=== PATIENT | male | born 1990 | race Caucasian/White ===

== ENCOUNTER 2019-05-16 18:12 | Inpatient (IN) | payer MEDICAID ==
[~2019-05-16] VITALS: Ht 170.2 cm; Wt 49.4 kg
--- NOTE | 2019-05-16 18:12 | NUR ---
Patient BIBA BLS, transferred to bed 7. RN evaluating patient at bedside.
[2019-05-16 18:21] VITALS: BP 72/26
[2019-05-16] MEDS ORDERED: NACL 0.9% 2,000 ML IV ONE (18:29)
[2019-05-16] MEDS ORDERED: LEVOFLOXACIN 500 MG/D5W PREMIX 100 ML IV ONE (18:30)
--- NOTE | 2019-05-16 18:31 | NUR ---
29YO HOMELESS MALE BIBA FROM [facility] C/O ABDOMINAL PAIN AND BODY CHILLS. STATES 8/10 SHARP, DIFFUSED ABDOMINAL PAIN. PT IS A KNOWN CASE OF PANCREATITIS, ADMITS TO ALCOHOL INTAKE HOURS AGO. -FEVER, -COUGH, -COLDS. LBM: TODAY. PATIENT POSITIONED FOR COMFORT; HOB ELEVATED; BEDRAILS UP X2; BED DOWN. ER MD SAW PATIENT. PMH: DM, PANCREATITIS MEDS: METFORMIN, ZOFRAN ALLERGIES: NONE
--- NOTE | 2019-05-16 18:50 | NUR ---
office technology professor at bedside.
--- NOTE | 2019-05-16 18:54 | NUR ---
EKG completed at bedside by EMT.
[2019-05-16 19:00] LABS: BASOPHILS % (AUTO) 0.6 % (0.0-2.0); EOSINOPHILS # (AUTO) 0.3 K/uL (0-0.4); EOSINOPHILS % (AUTO) 3.2 % (0.0-4.0); HEMATOCRIT 29.3 % (36-52); HEMOGLOBIN 9.8 g/dL (12.0-18.0); LYMPHOCYTES # (AUTO) 2.1 K/uL (2.0-11.5); LYMPHOCYTES % (AUTO) 25.4 % (20.5-51.1); MEAN CORPUSCULAR HEMOGLOBIN 33 pg (27-31); MEAN CORPUSCULAR HGB CONC 33 g/dL (33-37); MONOCYTES # (AUTO) 0.9 K/uL (0.8-1.0); MONOCYTES % (AUTO) 10.5 % (1.7-9.3); NEUTROPHILS # (AUTO) 4.9 K/uL (1.8-7.7); NEUTROPHILS % (AUTO) 60.3 % (42.2-75.2); PLATELET COUNT (AUTO) 192 K/uL (140-450); RED BLOOD CELL COUNT(AUTO) 2.96 MIL/uL (4.20-6.10); RED CELL DISTRIBUTION WIDTH 13.9 % (11.6-13.7); WHITE BLOOD COUNT (AUTO) 8.1 K/uL (4.8-10.8)
--- NOTE | 2019-05-16 19:11 | NUR ---
RECEIEVED REPORT FROM IRAIS DIOP. WILL CONT CARE AT THIS TIME.
[2019-05-16 19:19] LABS: ACETONE, SERUM NEGATIVE (NEGATIVE)
[2019-05-16 19:22] LABS: ALBUMIN 3.6 g/dL (3.4-5.0); ANION GAP 18.5 (8-16); ASPARTATE AMINOTRANSFERASE 56 U/L (15-37); CARBON DIOXIDE 20.5 mmol/L (21-32); CHLORIDE 100 mmol/L (98-107); GFR ARICAN-AMERICAN 112 mL/min (>90); GLUCOSE 183 mg/dL (74-106); SODIUM SERUM 136 mmol/L (136-145); TOTAL BILIRUBIN 0.3 mg/dL (0.0-1.0); UREA NITROGEN, BLOOD 21 mg/dL (7-18)
[2019-05-16] MEDS ORDERED: KCL 20 MEQ/WATER INJ PREMIX 100 ML IV ONE (19:45)
[2019-05-16 19:50] LABS: APPEARANCE,URINE CLOUDY (CLEAR); BILIRUBIN,URINE NEGATIVE (NEGATIVE); BLOOD, URINE TRACE-L (NEGATIVE); COLOR,URINE YELLOW (YELLOW); LEUKOCYTE ESTERASE ,URINE NEGATIVE (NEGATIVE); NITRITE, URINE NEGATIVE (NEGATIVE); UGLUCOSE NEGATIVE (NEGATIVE)
[2019-05-16 20:00] LABS: WBC,URINE 0-5 /HPF (0-5)
[2019-05-16] MEDS ORDERED: MORPHINE SULFATE 4 MG/ML SYR IVP ONE (20:10)
[2019-05-16] MEDS ORDERED: NACL 0.9% 1,000 ML IV SCH (20:13)
[2019-05-16] MEDS ORDERED: DOCUSATE SODIUM 100 MG GELCAP PO PRN (20:15)
[2019-05-16] MEDS ORDERED: ONDANSETRON 4 MG/2 ML VIAL IM/IVP PRN (20:15)
[2019-05-16] MEDS ORDERED: ACETAMINOPHEN 325 MG TAB PO PRN (20:15)
[2019-05-16 20:17] LABS: PROTHROMBIN TIME 12.9 secs (10.8-13.4)
[2019-05-16] MEDS ORDERED: DEXTROSE 50% 50 ML SYR IVP PRN (20:25)
[2019-05-16 20:45] VITALS: BP 107/70
[2019-05-16 20:45] LABS: MAGNESIUM 1.1 mg/dL (1.8-2.4); PHOSPHORUS 4.3 mg/dL (2.5-4.9); THYROID STIMULATING HORMONE 1.3 uIU/mL (0.34-3.74)
--- NOTE | 2019-05-16 20:45 | NUR ---
ADMITTED A 29 YEAR OLD MALE FROM ER. ALERT AND ORIENTED X 4. NO APPARENT DISTRESS NOTED. HOMELESS. WITH IV ON LEFT AC 20G AND RIGHT AC 20G. DENIES PAIN NOR DISCOMFORT. V/S=98.1, 98%, 107/70, 110 AND 18. WILL CONTINUE TO MONITOR. Addendum: 05/17/19 at 0504 by Fawn Zavala RN ORIENTED TO HOSPITAL ROUTINE, ENVIRONMENT AND CALL LIGHT. CALL LIGHT WITHIN REACH. BED ON LOW POSITION.
--- NOTE | 2019-05-16 20:45 | NUR ---
Patient will be admitted to care of DR. CASTAÑEDA. Admited to M/S. Will go to [id number]. Belongings list completed. Report to IRAIS CHAPMAN.
[2019-05-16 21:14] LABS: BARBITURATE, URINE NEG. ng/ml (NEG <=200); BENZODIAZEPINE, URINE NEG. ng/mL (NEG <=200); CANNABINOID, URINE POS. ng/mL (NEG <=50); COCAINE, URINE NEG. ng/mL (NEG <=300); OPIATE, URINE NEG. ng/mL (NEG <=2000); PHENCYCLIDINE SCREEN,URINE NEG. ng/mL (NEG <=25)
[2019-05-16] MEDS ORDERED: METF500T PO (21:23)
[2019-05-16] MEDS: BLOOD GLUCOSE MONITORING 1 DEV DEV FS SCH (21:50)
[2019-05-16] MEDS ORDERED: MAG SULF 2000 MG/WATER PREMIX 100 ML IV ONE (22:00)
[2019-05-16] MEDS: DEXT 5% / NACL 0.9% 500 ML IV SCH (22:04)
[2019-05-16] MEDS ORDERED: cefTRIAXone 1,000 MG VIAL ONE (22:20)
--- NOTE | 2019-05-16 22:40 | NUR ---
PATIENT AWAKE ON HIS PHONE AT THIS TIME. NO APPARENT DISTRESS NOTED. WILL CONTINUE TO MONITOR.
[2019-05-16] MEDS: HYDROcodone/APAP 7.5/325 MG 1 TAB PO PRN (22:55)
--- NOTE | 2019-05-17 00:35 | NUR ---
PATIENT AWAKE IN BED. NO APPARENT DISTRESS NOTED. DENIES PAIN NOR DISCOMFORT. BED ON LOW POSITION. WILL CONTINUE TO MONITOR.
--- NOTE | 2019-05-17 01:05 | NUR ---
PATIENT ASLEEP IN BED. NO APPARENT DISTRESS NOTED. WILL CONTINUE TO MONITOR.
[2019-05-17] MEDS: DEXT 5% / NACL 0.9% 500 ML IV SCH ×13 (01:15→23:15)
--- NOTE | 2019-05-17 02:30 | NUR ---
PATIENT AWAKE ON HIS PHONE. NO APPARENT DISTRESS NOTED. DENIES PAIN NOR DISCOMFORT AT THIS TIME. WILL CONTINUE TO MONITOR.
[2019-05-17] MEDS: HYDROcodone/APAP 7.5/325 MG 1 TAB PO PRN ×4 (03:37→22:44)
--- NOTE | 2019-05-17 04:25 | NUR ---
PATIENT ASLEEP IN BED. NO APPARENT DISTRESS NOTED. VISIBLE CHEST RISE AND FALL NOTED. WILL CONTINUE TO MONITOR.
[2019-05-17] MEDS ORDERED: LORazepam 1 MG TAB PO SCH (05:00)
--- NOTE | 2019-05-17 06:20 | NUR ---
PATIENT ASLEEP IN BED. NO APPARENT DISTRESS NOTED. VISIBLE CHEST RISE AND FALL NOTED. WILL CONTINUE TO MONITOR.
[2019-05-17] MEDS: BLOOD GLUCOSE MONITORING 1 DEV DEV FS SCH ×4 (06:21→21:50)
[2019-05-17] MEDS: INSULIN LISPRO SLIDING SCALE 100 UNITS/ML VIAL SUBQ PRN ×3 (06:25→21:49)
[2019-05-17 06:40] LABS: ANION GAP 15.5 (8-16); CARBON DIOXIDE 19.4 mmol/L (21-32); CREATININE 0.7 mg/dL (0.7-1.3)
[2019-05-17 06:43] LABS: BASOPHILS % (AUTO) 0.6 % (0.0-2.0); EOSINOPHILS # (AUTO) 0.3 K/uL (0-0.4); EOSINOPHILS % (AUTO) 4.1 % (0.0-4.0); HEMATOCRIT 26.3 % (36-52); HEMOGLOBIN 8.9 g/dL (12.0-18.0); LYMPHOCYTES # (AUTO) 1.7 K/uL (2.0-11.5); LYMPHOCYTES % (AUTO) 26.3 % (20.5-51.1); MEAN CORPUSCULAR HEMOGLOBIN 33 pg (27-31); MEAN CORPUSCULAR HGB CONC 34 g/dL (33-37); MEAN CORPUSCULAR VOLUME 98.4 fL (80-94); MONOCYTES # (AUTO) 0.7 K/uL (0.8-1.0); MONOCYTES % (AUTO) 10.3 % (1.7-9.3); NEUTROPHILS # (AUTO) 3.8 K/uL (1.8-7.7); NEUTROPHILS % (AUTO) 58.7 % (42.2-75.2); PLATELET COUNT (AUTO) 157 K/uL (140-450); RED BLOOD CELL COUNT(AUTO) 2.68 MIL/uL (4.20-6.10); RED CELL DISTRIBUTION WIDTH 13.8 % (11.6-13.7); WHITE BLOOD COUNT (AUTO) 6.5 K/uL (4.8-10.8)
[2019-05-17 06:44] LABS: MAGNESIUM 1.8 mg/dL (1.8-2.4); PHOSPHORUS 3.2 mg/dL (2.5-4.9)
[2019-05-17 06:48] LABS: POTASSIUM 2.9 mmol/L (3.5-5.1)
[2019-05-17 06:50] LABS: CHOL/HDL RATIO 1.9 (1-4.5)
[2019-05-17] MEDS ORDERED: MULTIVITAMIN-12 10 ML, THIAMINE 100 MG, MAGNESIUM SULFATE 50% 2,000 MG, FOLIC ACID 1 MG... IV ONE ×5 (07:00)
--- NOTE | 2019-05-17 07:15 | NUR ---
ENDORSED TO AM SHIFT NURSE FOR CONTINUITY OF CARE.
--- NOTE | 2019-05-17 07:20 | NUR ---
RECEIVED PT FROM DENSITOMETER READER NURSE, PT IS AWAKE AND LYING ON THE BED WITH SIDE RAILS UP AND CALL LIGHT WITHIN REACH, IV LINE ON THE RT AC G. 20 ON SALINE LOCK AND ON THE LEFT FA G. 20 WITH D5NS INFUSING AT 250ML/HR, SAFETY AND FAWLL PRECAUTION ENFORCED AND PT C/O PAIN RATE OF 4/10, WILL MEDICATE AND MONITOR PT.
[2019-05-17 08:00] VITALS: BP 112/74
[2019-05-17] MEDS: PANTOPRAZOLE 40 MG INJ VIAL IVP SCH (08:51)
[2019-05-17] MEDS: chlordiazePOXIDE 25 MG CAP PO SCH ×3 (08:52→16:30)
[2019-05-17] MEDS: metFORMIN 500 MG TAB PO SCH ×2 (08:52→21:50)
[2019-05-17] MEDS: LACTOBACILLUS RHAMNOSUS GG 1 EACH CAP PO SCH (08:52)
[2019-05-17] MEDS ORDERED: POTASSIUM CHLORIDE 40 MEQ, LIDOCAINE MPF 1% 25 MG in NACL 0.9% 250 ML IV SCH (09:00)
--- NOTE | 2019-05-17 09:30 | NUR ---
PT WAS GIVEN POTASSIUM RIDER 40MEQ NOW.
[2019-05-17] MEDS ORDERED: MAGNESIUM OXIDE 400 MG TAB PO PRN (11:55)
[2019-05-17] MEDS ORDERED: POTASSIUM CHLORIDE 10 MEQ TABER PO PRN (11:55)
--- NOTE | 2019-05-17 13:10 | NUR ---
PT IS OFF THE UNIT NOW FOR A CT.
[2019-05-17 16:00] VITALS: BP 134/98
--- NOTE | 2019-05-17 16:32 | NUR ---
PT WAS GIVEN LIBRIUM, PARAMETER CHECKED, INSULIN GIVEN ON THE LEFT UA FOR THE BLOOD GLUCOSE OF 190, WILL MONITOR PT.
[2019-05-17 18:51] LABS: ANION GAP 17.4 (8-16); CARBON DIOXIDE 20.6 mmol/L (21-32)
[2019-05-17 18:52] LABS: CREATININE 0.7 mg/dL (0.7-1.3)
--- NOTE | 2019-05-17 19:10 | NUR ---
ENDORSED PT TO APPLICATIONS SYSTEMS ANALYST NURSE FOR CONTINUITY OF CARE
--- NOTE | 2019-05-17 19:11 | NUR ---
RECEIVED REPORT FROM AM SHIFT NURSE. PATIENT ALERT AND ORIENTED X4. NO APPARENT DISTRESS NOTED. ON CONTACT PRECAUTIONS. OBSERVED AT ALL TIMES. WITH 20G AC ON RIGHT AND LEFT ARM RUNNING BANANA BAG AND IVF. WILL CONTINUE TO MONITOR.
--- NOTE | 2019-05-17 21:11 | NUR ---
PATIENT ASLEEP IN BED. NO APPARENT DISTRESS NOTED. WILL CONTINUE TO MONITOR.
--- NOTE | 2019-05-17 23:10 | NUR ---
PATIENT AWAKE IN BED, RESTING. NO APPARENT DISTRESS NOTED. WILL CONTINUE TO MONITOR.
[2019-05-18] VITALS: BP 122/85
[2019-05-18] MEDS: DEXT 5% / NACL 0.9% 500 ML IV SCH ×5 (00:54→17:43)
--- NOTE | 2019-05-18 02:00 | NUR ---
PATIENT AWAKE IN BED. NO APPARENT DISTRESS NOTED. WILL CONTINUE TO MONITOR.
[2019-05-18] MEDS: HYDROcodone/APAP 7.5/325 MG 1 TAB PO PRN ×3 (03:59→20:26)
--- NOTE | 2019-05-18 04:00 | NUR ---
ASSISTED PATIENT TO THE BATHROOM. SAFETY ENSURED.
[2019-05-18] MEDS: BLOOD GLUCOSE MONITORING 1 DEV DEV FS SCH ×4 (05:58→20:42)
--- NOTE | 2019-05-18 06:00 | NUR ---
PATIENT ASLEEP IN BED. VISIBLE CHEST RISE AND FALL NOTED. WILL CONTINUE TO MONITOR.
[2019-05-18] MEDS: INSULIN LISPRO SLIDING SCALE 100 UNITS/ML VIAL SUBQ PRN ×2 (06:01→17:49)
--- NOTE | 2019-05-18 06:44 | NUR ---
PATIENT HAS BEEN SCREENED AND CATEGORIZED HIGH NUTRITION RISK. PATIENT WILL BE SEEN WITHIN 1-2 DAYS OF ADMISSION. 05/18/19-05/19/19 KOBY NORRIS MS, RDN
[2019-05-18 07:01] LABS: BASOPHILS % (AUTO) 0.6 % (0.0-2.0); EOSINOPHILS # (AUTO) 0.2 K/uL (0-0.4); EOSINOPHILS % (AUTO) 2.7 % (0.0-4.0); HEMOGLOBIN 8.6 g/dL (12.0-18.0); LYMPHOCYTES # (AUTO) 1.1 K/uL (2.0-11.5); LYMPHOCYTES % (AUTO) 17.3 % (20.5-51.1); MEAN CORPUSCULAR HEMOGLOBIN 33 pg (27-31); MEAN CORPUSCULAR HGB CONC 33 g/dL (33-37); MEAN CORPUSCULAR VOLUME 99.3 fL (80-94); MONOCYTES # (AUTO) 0.7 K/uL (0.8-1.0); MONOCYTES % (AUTO) 10.8 % (1.7-9.3); NEUTROPHILS # (AUTO) 4.3 K/uL (1.8-7.7); NEUTROPHILS % (AUTO) 68.6 % (42.2-75.2); PLATELET COUNT (AUTO) 151 K/uL (140-450); RED BLOOD CELL COUNT(AUTO) 2.62 MIL/uL (4.20-6.10); RED CELL DISTRIBUTION WIDTH 14.1 % (11.6-13.7); WHITE BLOOD COUNT (AUTO) 6.2 K/uL (4.8-10.8)
--- NOTE | 2019-05-18 07:20 | NUR ---
ENDORSED TO AM SHIFT NURSE IN STABLE CONDITION.
--- NOTE | 2019-05-18 07:26 | NUR ---
PATIENT REPORT WAS GIVEN BY OUTDOOR ADVENTURE GUIDES NURSE FOR CONTINUITY OF CARE. PATIENT IS RESTING IN BED EATING BREAKFAST. PATIENT IS PREPARING FOR DISPO TODAY AROUND NOON. LEFT AND RIGHT IV A.C. INTACT AND PATENT. PATIENT IS HOMELESS. WILL CONTINUE TO MONITOR.
[2019-05-18 07:28] LABS: ANION GAP 15.8 (8-16); CREATININE 0.7 mg/dL (0.7-1.3); POTASSIUM 3.8 mmol/L (3.5-5.1)
[2019-05-18 08:00] VITALS: BP 136/99
[2019-05-18] MEDS ORDERED: HYDROcodone/APAP 10/325 MG 1 TAB TAB PO SCH (08:15)
[2019-05-18] MEDS: LACTOBACILLUS RHAMNOSUS GG 1 EACH CAP PO SCH (08:56)
[2019-05-18] MEDS: chlordiazePOXIDE 25 MG CAP PO SCH ×3 (08:57→17:40)
[2019-05-18] MEDS: PANTOPRAZOLE 40 MG INJ VIAL IVP SCH (08:59)
[2019-05-18] MEDS: metFORMIN 500 MG TAB PO SCH ×2 (09:10→20:25)
--- NOTE | 2019-05-18 10:00 | NUR ---
PATIENT IS RESTING IN BED, WATCHING TV, NO SIGNS OF DISTRESS NOTED. BED IS IN LOWEST POSITION, CALL LIGHT ON, WILL CONTINUE TO MONITOR.
--- NOTE | 2019-05-18 11:50 | NUR ---
(05/18/19) RD INITIAL ASSESSMENT COMPLETED PLEASE REFER TO NUTRITION ASSESSMENT UNDER CARE ACTIVITY FOR ESTIMATED NUTRITIONAL NEEDS. RD RECOMMENDATIONS: 1. CONTINUE ON REGULAR DIET TOLERATED. 2. CONSULT RDN PRN. 3. RD WILL F/U 3-5 DAYS; MODERATE RISK. KOBY NORRIS MS, RDN
--- NOTE | 2019-05-18 12:30 | NUR ---
PATIENT IS AMBULATING AROUND MST UNIT, TOLERATING ACTIVITY WELL. WORKING ON A CROSSWORD PUZZLE. WAS INFORMED ABOUT NO LONGER BEING READY FOR DISCHARGE PER MD. PATIENT RESPONDED WELL. BED IN LOWEST POSITION, CALL LIGHT ON, WILL CONTINUE TO MONITOR.
[2019-05-18] MEDS ORDERED: MAGNESIUM OXIDE 400 MG TAB PO SCH (14:00)
[2019-05-18] MEDS ORDERED: MAG SULF 2000 MG/WATER PREMIX 50 ML IV SCH (14:00)
--- NOTE | 2019-05-18 14:23 | NUR ---
Power Nut Runner Operator Note: SW attempted to complete screening. Patient was in shower. SW will follow up with patient. Addendum: 05/18/19 at 1523 by Eric Delatorre Basic Screen: Yes High Risk DC Screen Yes Name: BONNY Cooper Relationship: BROTHER Pre-Admission Living Arrangements: Other Other: HOMELESS Prior ADL Independent Current Home Health Name/Tel: N/A Current DME/02 Name/Tel: N/A Current Hospice Name/Tel: N/A Current Dialysis Name/Tel: N/A Healthcare Decision Maker: Patient Advance Directive No - REFUSED Physician Orders for Life Sustaining Treatment Form No Patient/Family Have Educational Needs No Information Taught: Community Resources Person Taught: Patient Teaching Tools: Verbal Factors Affecting Learning: None Participation Level: Active Evaluation: Verbalizes Understanding Needs Additional Education: No Discipline: Case Mgt/Social Svcs Tentative Discharge Plan/Destination: No Needs Identified Will require assistance post discharge: No Referred to Product Support Specialist: No Tentative Discharge Plan Summary: Patient is a 29-year-old male admitted for abdominal pain. Patient has PMHX of hypertension, diabetes, mellitis, and peancreatitis. Patient his homeless. SW verified demographics with patient. Patient stated that he has been homeless for 10 years. Patient reports no mental health history and no current substance abuse. Patient stated that he drinks 1-2 24 oz cans of beers daily and smokes marijuana. Patient refused substance abuse resources. SW provided patient homeless resources. Patient stated that his plan after discharge is to find a fpc. SW offered assistance but patient refused. SW informed charge nurse Antoinette that patient will need weather appropriate clothing and a meal to go. No further needs identified. Signature: JASMINE Herrera Date: May 18, 2019 Time: 15:20
--- NOTE | 2019-05-18 14:45 | NUR ---
PATIENT TOOK A SHOWER, MAG RIDER RUNNING AT 25 MLS/HR. PATIENT WAS GIVEN PAIN MEDICATION FOR GENERALIZED PAIN. TOLERATING MEDICATIONS WELL. PATIENT IS RESTING IN BED, BED IN LOW POSITION, CALL LIGHT WITHIN REACH, WILL CONTINUE TO MONITOR.
[2019-05-18 16:00] VITALS: BP 132/100
--- NOTE | 2019-05-18 17:30 | NUR ---
PATIENT IS IN BED ON HIS CELL PHONE, NO COMPLAINTS OF PAIN, COMPLAINING OF DIZZINESS. VITAL SIGNS ARE STABLE. DINNER WAS CONSUMED. CHANGED TO FULL LIQUID DIET. BED IS IN LOW POSITION, SIDE RAILS UP, CALL LIGHT IN REACH, WILL CONTINUE TO MONITOR.
--- NOTE | 2019-05-18 19:28 | NUR ---
RECEIVED REPORT AT BEDSIDE FORM JANETH RN AND PERCY RN DAYSHIFT NURSES AT BEDSIDE FOR CONTINUITY OF CARE, PT IN STABLE CONDITION.
--- NOTE | 2019-05-18 20:00 | NUR ---
PT AOX3, HE IS IN LOW BED WITH SIDE RAILS UP X2 AND CALL ANGUIANO IN REACH. PT HAS 2 IV SITES LEFT FOREARM IS SLIGHTLY PUFFY AND LEAKING AT SITE, IV FLUIDS WERE SWITCHED TO OTHER IV SITE ON RAC 20 GUAGE IT WAS FLUSHED PATENT AND HAS NO S/S OF INFILTRATION. V/S FOLLOWS : T 97.3 P 94 R 18 B/P 132/96 02 100% ON ROOM AIR. ALL REQUESTED NEEDS ATTENDED BY STAFF.
--- NOTE | 2019-05-18 21:00 | NUR ---
PT IN BED , WITH C/O OF 5/10 MODERATE GENERAL BODY ACHES,PT GIVEN PO/PRN NORCO WELL ORDERED METFORMIN FOR DIABETES. PT TEACHING DONE AT BEDSIDE. FINGERSTICK IS 139, NO HUMALOG COVERAGE NEEDED AT THIS TIME. ALL REQUESTED NEEDS ATTENDED BY STAFF.
[2019-05-18] MEDS: LORazepam 2 MG/ML VIAL IVP PRN (22:27)
--- NOTE | 2019-05-18 22:30 | NUR ---
PT C/O OF ANXIETY AND SLEEPLESSNESS HE WAS GIVEN PRN/IVP ATIVAN FOR AGITATION. WILL SPEAK TO PRIMARY RESIDENT FOR PRN SLEEPING AID REQUESTED. ROCEPHIN HUNG AND RUNNING AT 100MLS/HR ORDERED.
[2019-05-18] MEDS ORDERED: MELATONIN 3 MG TAB PO PRN (22:40)
--- NOTE | 2019-05-18 23:00 | NUR ---
SPOKE WITH MD BELTRAN REGARDING PT REQUEST FOR SLEEP AID. SHE ORDERED A MELATONIN PO/PRN FOR A SLEEP AID.
[2019-05-19] VITALS: BP 11/79
--- NOTE | 2019-05-19 00:30 | NUR ---
PT IN BED ASLEEP NO S/S OF PAIN OR DISTRESS NOTED. V/S FOLLOWS: T 97.6 P 85 R 18 B/P 111/79 02 99% ON ROOM AIR.
--- NOTE | 2019-05-19 02:02 | NUR ---
PT IN BED ASLEEP NO S/S OF PAIN OR DISTRESS NOTED BED LOW, SIDE RAILS UP AND CALL ANGUIANO IN REACH.
[2019-05-19] MEDS: DEXT 5% / NACL 0.9% 500 ML IV SCH (03:15)
[2019-05-19] MEDS: BLOOD GLUCOSE MONITORING 1 DEV DEV FS SCH (06:00)
--- NOTE | 2019-05-19 06:30 | NUR ---
PT FINGERSTICK IS 114 NO HUMALOG COVERAGE NEEDED. PT GIVEN 40 MEQ OF POTASSIUM DUE TO POTASSIUM LEVEL 2.9. PT ALSO GIVEN NORCO FOR MODERATE ABD/BACK PAIN.
[2019-05-19] MEDS: HYDROcodone/APAP 7.5/325 MG 1 TAB PO PRN ×3 (06:35→13:48)
[2019-05-19 06:53] LABS: BASOPHILS % (AUTO) 0.4 % (0.0-2.0); EOSINOPHILS # (AUTO) 0.2 K/uL (0-0.4); EOSINOPHILS % (AUTO) 3.1 % (0.0-4.0); HEMATOCRIT 27.8 % (36-52); HEMOGLOBIN 9.3 g/dL (12.0-18.0); LYMPHOCYTES # (AUTO) 1.7 K/uL (2.0-11.5); LYMPHOCYTES % (AUTO) 20.8 % (20.5-51.1); MEAN CORPUSCULAR HEMOGLOBIN 33 pg (27-31); MEAN CORPUSCULAR HGB CONC 34 g/dL (33-37); MEAN CORPUSCULAR VOLUME 99.3 fL (80-94); MONOCYTES # (AUTO) 0.6 K/uL (0.8-1.0); MONOCYTES % (AUTO) 7.2 % (1.7-9.3); NEUTROPHILS # (AUTO) 5.4 K/uL (1.8-7.7); NEUTROPHILS % (AUTO) 68.5 % (42.2-75.2); PLATELET COUNT (AUTO) 170 K/uL (140-450); RED CELL DISTRIBUTION WIDTH 13.8 % (11.6-13.7); WHITE BLOOD COUNT (AUTO) 7.9 K/uL (4.8-10.8)
--- NOTE | 2019-05-19 07:15 | NUR ---
RECEIVED REPORT FROM SOFTWARE ENGINEERING SUPERVISOR NURSE PARVEZ FOR CONTINUITY OF CARE. PT IN STABLE CONDITION. RESPIRATIONS EVEN AND UNLABORED, ROOM AIR. IV ACCESS INTACT AND PATENT. SAFETY MEASURES IN PLACE. BED IN LOW POSITION. CALL LIGHT AT BEDSIDE. WILL CONTINUE TO MONITOR.
[2019-05-19 08:00] VITALS: BP 126/84
[2019-05-19 08:36] LABS: ANION GAP 14.6 (8-16); CARBON DIOXIDE 21.3 mmol/L (21-32); CREATININE 0.6 mg/dL (0.7-1.3); POTASSIUM 3.9 mmol/L (3.5-5.1)
[2019-05-19 08:40] LABS: MAGNESIUM 1.1 mg/dL (1.8-2.4); PHOSPHORUS 3.7 mg/dL (2.5-4.9)
[2019-05-19] MEDS: LACTOBACILLUS RHAMNOSUS GG 1 EACH CAP PO SCH (09:23)
[2019-05-19] MEDS: chlordiazePOXIDE 25 MG CAP PO SCH ×2 (09:24→13:49)
[2019-05-19] MEDS: metFORMIN 500 MG TAB PO SCH (09:24)
[2019-05-19] MEDS: PANTOPRAZOLE 40 MG INJ VIAL IVP SCH (09:24)
[2019-05-19] MEDS: LORazepam 2 MG/ML VIAL IVP PRN (09:35)
--- NOTE | 2019-05-19 09:35 | NUR ---
GAVE ORDERED MEDICATIONS. PT TOLERATED WELL BED IN LOW POSITION. CALL LIGHT AT BEDSIDE. WILL CONTINUE TO MONITOR.
--- NOTE | 2019-05-19 11:33 | NUR ---
PT WALKING AROUND UNIT IN STABLE CONDITION. WILL CONTINUE TO MONITOR.
[2019-05-19] MEDS ORDERED: INFLUENZA VACCINE QUAD 0.5 ML SYR IMVAC PRN (12:40)
--- NOTE | 2019-05-19 13:00 | NUR ---
PT EATING LUNCH AT THIS TIME IN STABLE CONDITION. BED IN LOW POSITION. WILL CONTINUE TO MONITOR.
[2019-05-19] MEDS ORDERED: INFLUENZA VACCINE QUAD 0.5 ML SYR IMVAC ONE (13:18)
--- NOTE | 2019-05-19 14:00 | NUR ---
GAVE PT LUNCH SACK FOR DISCHARGE.
--- NOTE | 2019-05-19 14:30 | NUR ---
GAVE DISCHARGE INSTRUCTIONS, PT VERBALIZED UNDERSTANDING. IV REMOVED, LUMEN INTACT. ID BAND REMOVED. PT WHEELED TO LOBBY IN WHEELCHAIR. PT GIVEN BUS PASS. PT IN STABLE CONDITION.
== END 2019-05-19 14:30 | disposition home or self-care (01) | DRG 282 ==
LOC: MED 18:12 → MTU 20:14
PROVIDERS: ADMIT General Practice; ATTEND General Practice
DX: K85.20 Alcohol induced acute pancreatitis without necrosis or infection (principal); G92 Toxic encephalopathy; R64 Cachexia; E11.65 Type 2 diabetes mellitus with hyperglycemia; E83.42 Hypomagnesemia; N39.0 Urinary tract infection, site not specified; E87.6 Hypokalemia; I10 Essential (primary) hypertension; F17.210 Nicotine dependence, cigarettes, uncomplicated; F15.90 Other stimulant use, unspecified, uncomplicated; F12.90 Cannabis use, unspecified, uncomplicated; D53.9 Nutritional anemia, unspecified; Y90.6 Blood alcohol level of 120-199 mg/100 ml; Z23 Encounter for immunization; Z79.84 Long term (current) use of oral hypoglycemic drugs; Z68.1 Body mass index [BMI] 19.9 or less, adult; Z91.14 Patient's other noncompliance with medication regimen
CPT/HCPCS: 36415; 36600; 71045; 74150; 76770; 80048; 80053; 80305; 81001; 82009; 82150; 82607; 82746; 82803; 82948; 83036; 83540; 83605; 83690; 83735; 84100; 84443; 85025; 85045; 85610; 85730; 86900; 86901; 87040; 87045; 87070; 87081; 87086; 93005; 96365; 96367; 96375; 99285; A9153; C9113; G0482; J0696; J1956; J2001; J2060; J2270; J3411; J3475; J3480; J3490; J7030; J7042; J7060; Q0092

== ENCOUNTER 2019-05-20 22:47 | Emergency (ER) | payer MEDICAID ==
[~2019-05-20] VITALS: Ht 167.6 cm; Wt 45.4 kg
[2019-05-20 22:47] VITALS: BP 124/72
[~2019-05-20 22:47] MED LIST: METF500T PO
--- NOTE | 2019-05-20 22:55 | NUR ---
PT BIB [facility] TO ER BED 7
--- NOTE | 2019-05-20 23:00 | NUR ---
DISPOSED OF PATIENTS CLOTHING THAT WAS COVERED IN FECES AND TAKEN OFF IN BATHROOM. NO BELONGINGS NOTED IN POCKETS PRIOR TO DISPOSING. REMAINING BELONGINGS BROUGHT IN BY EMS AT BEDSIDE WITH PATIENT. RN MADE AWARE.
[2019-05-20] MEDS ORDERED: LORazepam 2 MG/ML VIAL IVP ONE (23:20)
[2019-05-20] MEDS ORDERED: NACL 0.9% 1,000 ML IV ONE (23:20)
[2019-05-20 23:38] LABS: BASOPHILS # (AUTO) 0.1 K/uL (0.00-0.22); BASOPHILS % (AUTO) 1.2 % (0.0-2.0); EOSINOPHILS # (AUTO) 0.2 K/uL (0-0.4); EOSINOPHILS % (AUTO) 3.7 % (0.0-4.0); HEMATOCRIT 27.3 % (36-52); MEAN CORPUSCULAR HEMOGLOBIN 33 pg (27-31); MEAN CORPUSCULAR HGB CONC 33 g/dL (33-37); MEAN CORPUSCULAR VOLUME 99.5 fL (80-94); MONOCYTES # (AUTO) 0.9 K/uL (0.8-1.0); NEUTROPHILS # (AUTO) 2.5 K/uL (1.8-7.7); NEUTROPHILS % (AUTO) 53.3 % (42.2-75.2); PLATELET COUNT (AUTO) 187 K/uL (140-450); RED BLOOD CELL COUNT(AUTO) 2.74 MIL/uL (4.20-6.10); WHITE BLOOD COUNT (AUTO) 4.7 K/uL (4.8-10.8)
[2019-05-20 23:49] LABS: ANION GAP 17.8 (8-16); CARBON DIOXIDE 17.6 mmol/L (21-32); CREATININE 1.2 mg/dL (0.7-1.3); POTASSIUM 4.4 mmol/L (3.5-5.1)
[2019-05-20 23:55] LABS: ALBUMIN 3.3 g/dL (3.4-5.0); MONOCYTES % (AUTO) 19.8 % (1.7-9.3); TOTAL BILIRUBIN 0.2 mg/dL (0.0-1.0)
--- NOTE | 2019-05-21 00:56 | NUR ---
pt ambulated to restroom to clean self up of diarrhea. security called to provide pt with clothing for discharge
--- NOTE | 2019-05-21 01:32 | NUR ---
PT GIVEN CLOTHING APPROPRIATE FOR WEATHER, SANDWICH, AND BUS PASS FOR TRANSPORT. PT GIVEN HOMELESS RESOURCE PACKET, HOMELESS PATIENT WAIVER FORM SIGNED.
[2019-05-21 01:33] VITALS: BP 124/72
--- NOTE | 2019-05-21 01:33 | NUR ---
Patient discharged with v/s stable. Written and verbal after care instructions given and explained. Patient verbalized understanding. Ambulatory with steady gait. All questions addressed prior to discharge. Advised to follow up with PMD.
== END 2019-05-21 01:33 | disposition home or self-care (01) ==
LOC: MED 22:47
DX: R19.7 Diarrhea, unspecified (principal); F10.129 Alcohol abuse with intoxication, unspecified; Y90.6 Blood alcohol level of 120-199 mg/100 ml; E11.9 Type 2 diabetes mellitus without complications; I10 Essential (primary) hypertension; Z79.899 Other long term (current) drug therapy
CPT/HCPCS: 36415; 80053; 85025; 96361; 96374; 99283; G0482; J2060; J7030